=== PATIENT | male | born 1960 | race Caucasian/White ===

== ENCOUNTER 2017-12-23 06:55 | Day surgery (SDC) | payer OTHER ==
[~2017-12-23] VITALS: Ht 236.2 cm; Wt 94.0 kg
[2017-12-23] MEDS ORDERED: IOHEXOL 350 MG/ML 50 ML BTL (for Cath Lab) OTHER ONE (06:56)
[2017-12-23 07:30] VITALS: BP 174/98; PULSE 58; RESP 17; TEMP 98.1; O2SAT 97
[2017-12-23] MEDS ORDERED: NS 1000P @30 MLS/HR (KVO) IV SCH (07:30)
[2017-12-23] MEDS ORDERED: ROSU1TAB10 PO (07:32)
[2017-12-23] MEDS ORDERED: NOVOLOGP2 SQ (07:32)
[2017-12-23] MEDS ORDERED: METF500T PO (07:32)
[2017-12-23] MEDS ORDERED: LEVEMIR SQ (07:32)
[2017-12-23] MEDS ORDERED: ASPI-183 PO (07:32)
[2017-12-23] MEDS ORDERED: METO50TA PO (07:32)
[2017-12-23] MEDS ORDERED: MIDAZOLAM HCL 2 MG/2 ML VIAL ONE (08:27)
[2017-12-23] MEDS ORDERED: HEPARIN-NS/PF INJ 1,500 ML ONE (08:27)
[2017-12-23] MEDS ORDERED: HEPARIN SODIUM - IV 10,000 UNITS/10 ML VIAL ONE (08:28)
[2017-12-23] MEDS ORDERED: NITROGLYCERIN INJ 5 ML ONE (08:28)
--- NOTE | 2017-12-23 09:11 | CATHPROC ---
[employer] HIS Report Study Information Study Number Scheduled Start Study Start [id number] 12/23/2017 Dec 23 2017 8:26AM Referring Institution Admit Source Facility Department 1 Other [facility] - Research Nutritionist Physician and Clinical Staff Initial Kenny Gil Sample Book Makerenoc Carrizales RN, Javier Recorder Deborah Romero ,RT(R) Caitlin Jauregui,RT(R) Procedures Performed Procedure Location (Site) Vessel Name Coronary Angiograms LCA Left Coronary Coronary Angiograms RCA Right Coronary L Heart Cath Wire insertion Radial (right) Radial Art. Equipment Time Commission Broker Description Size Mfg Part Number Used/Scraped TRANSDUCER, TRUWAVE [id number] 08:29 FALCON BRUNO * Used W/STOCKCOCK *[id number] *[id number] 08:29 OneSpot PACK, CCL CUSTOM * Used *[id number] 08:29 [employer]Spot SUPPORT, ARTERIAL ADULT [id number] *[id number] Used [id number] 08:29 [employer] PACER PEN, SKIN DUAL W/ RULER * Used *[id number] 08:36 MEDTRONIC JR 5.0 DXTERITY CATHETER fr 5 [id number] Used BAND, RADIAL COMPRESSION TR [id number] 08:58 [employer] MEDICAL 29CM Used LARGE 29 *[id number] SHEATH, FR6 RADIAL PRELUDE 08:29 ESTmob FR 6 [id number] Used EASE 11CM [id number] 08:29 [employer] MEDICAL WIRE, EXCHANGE 260CM 3MMJ 260CM Used *[id number] 08:29 NAMIC MANIFOLD, 4 PORT * Used *[id number] 08:29 NYCOMED OMNIPAQUE, 350 MG, 150ML 150ML [id number] Used [id number] 08:29 SOFIA MEDICAL BLANKET,WARM AIR CCL * Used *[id number] Equipment Model, Serial, Lot Number and Expiration Data Description Model Number Serial Number Lot Number Expiration Date JR 5.0 DXTERITY CATHETER [id number] 02-04-2020 History: Current Medications Medication Dosage/Unit Route Frequency Last Date/Time Taken ASA Insulin Statins (any) History: Allergies Allergy Reaction No Known Allergies History: Risk Factors Family History of Hypertension Dyslipidemia Previous NC Previous Heart Failure Premature CAD Yes No No No No Prior Valve Prior PCI Prior PCIDate Prior CABG Surgery No Yes 08/01/2011 No Cerebrovascular Peripheral Artery Chronic Lung On Dialysis Diabetes Diabetes Therapy Disease Disease Disease No No No No Yes Insulin History: Stress Tests Stress or Imaging Studies Performed Yes History: Other Current Smoker Method Yes Cigarettes Labs Hgb (g/dl) Hct (%) WBC (l/cumm) Platelets (thousands) 11.60-17.00 35.00-51.00 4.00-11.00 150.00-450.00 13.0 39.3 5.8 159 Glucose (mg/dl) BUN (mg/dl) Creatinine (mg/dl) BUN:Creatinine (1:x) 74.00-106.00 7.00-18.00 0.50-1.30 10.00-20.00 134 24 0.7 34.3 Na (meq/l) K (meq/l) 136.00-145.00 3.50-5.10 145 4.5 INR (PTT:PT) 0.90-1.10 0.9 CPK-MB (ng/ML) 0.50-3.60 Not Drawn Medication Medication Total Dose (Bolus/Oral) Medication Total Dosage/Unit 1% XYLOCAINE 5 mL FENTANYL 50 mcg HEPARIN 5000 units NTG (IC) 200 mcg VERSED 1 mg Medications (Bolus/Oral) Medication Time Given Dosage/Unit Administered By Reason VERSED 12/23/2017 8:42:45 AM 1 mg Javier Carrizales RN 1 mg VERSED given in lab by Javier Carrizales RN in Left Antecubital via Peripheral IV. Ordered by Kenny Urbano. FENTANYL 12/23/2017 8:43:16 AM 50 mcg Javier Carrizales RN 50 mcg FENTANYL given in lab by Javier Carrizales RN in Left Antecubital via Peripheral IV. Ordered by Kenny Vo. 1% XYLOCAINE 12/23/2017 8:48:50 AM 5 mL Kenny Urbano 5 mL 1% XYLOCAINE given in lab by Kenny Urbano in Right Radial via Subcutaneous. Ordered by Kenny Urbano. NTG (IC) 12/23/2017 8:50:24 AM 200 mcg Kenny Urbano 200 mcg NTG (IC) given in lab by Kenny Urbano in Right Radial via Intra-coronary. Ordered by Kenny Urbano. HEPARIN 12/23/2017 8:50:39 AM 5000 units Javier Carrizales RN 5000 units HEPARIN given in lab by Javier Carrizales RN via Peripheral IV. Ordered by Kenny Urbano. Medication (Drip) Medication Time Given Dosage/Unit Concentration/Unit Diluent (ml) Solution IV Solutions 12/23/2017 8:27:20 AM 50 mL (IV) NaCl .9 Patient arrived on IV Solutions in Left Antecubital via Peripheral IV. Pump/Drip Flow using NaCl .9. Initial Case Assessment Cardiovascular HR Rhythm NIBP Chest Pain 59 sr 179/92 0 Edema Present Skin color Skin None Normal Warm Dry Circulatory - Right Pulses Dorsalis Pedis Femoral Radial 2 2 2 Scale (0,1,2,3,4,d) Circulatory - Left Pulses Dorsalis Pedis Femoral Radial 2 2 Scale (0,1,2,3,4,d) Circulatory - Lower Extremities Color Lower Right Color Lower Left Normal Normal Neurological State Oriented to time-place- Alert Moves all extremities person Respiration - General Respiration Rate SpO2 (%) (B/min) 16 97 Final Case Assessment Cardiovascular HR Rhythm NIBP Chest Pain 59 sr 179/92 0 Edema Present Skin color Skin None Normal Warm Dry Circulatory - Right Pulses Dorsalis Pedis Femoral Radial 2 2 2 Scale (0,1,2,3,4,d) Circulatory - Left Pulses Dorsalis Pedis Femoral Radial 2 2 Scale (0,1,2,3,4,d) Circulatory - Lower Extremities Color Lower Right Color Lower Left Normal Normal Neurological State Oriented to time-place- Alert Moves all extremities person Respiration - General Respiration Rate SpO2 (%) (B/min) 16 97 Chronological Log Time Study Chronological Log 8:20:02 Patient Name, D.O.B, / Armband Verified By R.N. 8:20:58 Patient arrived via Bed. 8:21:06 Consent signed by the physician and the patient and verified by the Research Nutritionist staff. 8:21:11 Pre-op and post- op instructions given; patient acknowledges understanding of instructions. 8:21:14 Verbal Stimulation=2 Physical Stimulation=2 Airway=2 Respiration=2 TOTAL=8. (0=absent, 1=li mited, 2=present) 8:21:18 Patient has been NPO for More than 6Hrs. 8:21:22 Patient Warmer Placed on the Table. 8:21:25 Kaylah Prominences Protected 8:22:34 History and physical on the chart or being dictated. 8:26:29 A # 20 IV was noted in the Antecubital (left). Grade = 0 Vitals capture started with the following parameters, Patient=Adult, Interval=5 min, Initial Pr lxatcw=256 mmHg, 8:26:47 Deflation Rate=5 mmHg, Cuff placed on Left Arm 8:27:20 Patient arrived on IV Solutions in Left Antecubital via Peripheral IV. Pump/Drip Flow using NaCl .9. 8:27:59 HR=60 bpm, WENR=535/92 mmhg, SpO2=97.0 %, Resp=18 B/min, Pain=0, Cristhian=10, Zaldivar=2 Assessment: Initial Case, HR=59 BPM, Rhythm=sr, MMHO=803/92 mmhg, Chest Pain=0, Edema=None, [place] r=Normal, Skin = Warm, Dry Right Pulses: Yoshi Ped=2, Femoral=2, Radial=2 Left Pulses: Yoshi Ped=2, Femoral=2 8:31:15 Lower Right Extremities: Color=Normal Lower Left Extremities: Color=Normal Neurological: State=Alert, Ox3, COOLEY Respiration: Resp=16 B/min, SpO2=97 % 8:31:18 Right Radial and groin(s) prepped with 2% chlorhexidine, and draped after a 3 min. waiting t eneida. 8:32:35 HR=59 bpm, WMGV=463/94 mmhg, SpO2=97.0 %, Resp=17 B/min, Pain=0, Cristhian=10, Zaldivar=2 8:33:18 paged 8:35:03 MD responded 8:35:15 Pressure channel 1 zeroed. 8:37:38 HR=59 bpm, COBH=291/98 mmhg, SpO2=96.0 %, Resp=14 B/min, Pain=0, Cristhian=10, Zaldivar=2 8:42:22 Reference ECG taken 8:42:33 HR=59 bpm, HTHN=352/96 mmhg, SpO2=96.0 %, Resp=20 B/min, Pain=0, Cristhian=10, Zaldivar=2 8:42:45 1 mg VERSED given in lab by Javier Carrizales RN in Left Antecubital via Peripheral IV. Ordered Kenny Garcia. 8:43:16 50 mcg FENTANYL given in lab by Javier Carrizales RN in Left Antecubital via Peripheral IV. Order ed by Kenny Urbano. 8:43:41 MD arrived. Time Out. Correct patient, correct procedure, correct physician, labs, allergies, and equipment verified with high density press laborer 8:44:14 team present. Fire risk assesment completed (see hard stop sheet for coding). Time Out Concu rred by MD and individual staff in procedure. 8:47:32 HR=59 bpm, TEHA=220/95 mmhg, SpO2=97.0 %, Resp=13 B/min 8:48:15 Case Start 8:48:50 5 mL 1% XYLOCAINE given in lab by Kenny Urbano in Right Radial via Subcutaneous. Ordered b Kenny Trevino. 8:49:19 Access site was Right Radial Artery. 8:49:56 A wire was inserted via Radial (right). A SHEATH, FR6 RADIAL PRELUDE EASE 11CM FR 6 was advanced into the Radial (right) using the Ady bains 8:50:07 technique. 8:50:24 200 mcg NTG (IC) given in lab by Kenny Urbano in Right Radial via Intra-coronary. Ordered by Kenny Urbano. 8:50:39 5000 units HEPARIN given in lab by Javier Carrizales RN via Peripheral IV. Ordered by Fernando Urbano. A JR 5.0 DXTERITY CATHETER fr 5 was advanced over a wire. OMNIPAQUE, 350 MG, 150ML 150ML was use d for 8:51:30 injections. Recorded Pressure: Ao, HR=60, Condition=Condition 1 8:52:04 (Aorta) Ao 151/81/109 8:52:18 The RCA was injected and visualized at various angles. OMNIPAQUE, 350 MG, 150ML 150ML used. 8:52:33 HR=62 bpm, IZWC=033/93 mmhg, SpO2=94.0 %, Resp=13 B/min, Pain=0, Cristhian=10, Zaldivar=2 After removing the current catheter a JL 3.5 INFINITI CATHETER FR 5 was advanced over a WIRE, EX CHANGE 260CM 8:53:43 3MMJ 260CM. 8:56:16 The LCA was injected and visualized at various angles. OMNIPAQUE, 350 MG, 150ML 150ML used. 8:57:15 Catheter was removed 8:57:26 Case End 8:57:32 HR=59 bpm, EYAQ=631/86 mmhg, SpO2=95.0 %, Resp=15 B/min, Pain=0, Cristhian=10, Zaldivar=2 Assessment: Final Case, HR=59 BPM, Rhythm=sr, LQYU=579/92 mmhg, Chest Pain=0, Edema=None, [place] r=Normal, Skin = Warm, Dry Right Pulses: Yoshi Ped=2, Femoral=2, Radial=2 Left Pulses: Yoshi Ped=2, Femoral=2 8:59:13 Lower Right Extremities: Color=Normal Lower Left Extremities: Color=Normal Neurological: State=Alert, Ox3, COO[place] Respiration: Resp=16 B/min, SpO2=97 % 8:59:21 Catheter(s) removed without difficulty Radial Compression Device Used. 18 mLs of air placed in BAND, RADIAL COMPRESSION TR LARGE 29 2 9CM. Affected 8:59:24 hand ~O2 SATURATION~ % O2 saturation. 8:59:27 No case complications noted. 8:59:27 Cine recording checked. 8:59:28 Bedside Report will be given. 8:59:34 A Left Heart Cath was performed. 9:02:33 HR=68 bpm, SQWX=214/93 mmhg, SpO2=97.0 %, Resp=13 B/min, Pain=0, Cristhian=10, Zaldivar=2 9:07:02 [facility] End Study - Contrast Media Used In Study Contrast Total Opened (mL) Total Used (mL) Total Wasted (mL) Omnipaque 30 30 0 End Study - Maximum Contrast Load Max Contrast Load (mL) 671.4 End Study - Radiation Exposure Fluoro Time (minutes) 1.6 End Study - Sheaths Sheaths Pulled By Sheath Hold Time (min) Caitlin Mixon End Study - Patient Disposition Complications Transferred To Interventional Outcome No Telemetry Bed No attempt made
[2017-12-23] MEDS ORDERED: BACITRACIN OINT 0.9 GM PKT TOP ONE (09:15)
[2017-12-23] MEDS ORDERED: MISC INFORMATION XX ONE (09:15)
--- NOTE | 2017-12-23 09:36 | MA ---
cc: Kenny Urbano MD DATE: 12/23/2017 INDICATION: Abnormal stress test, intermediate risk. PROCEDURES PERFORMED: 1. Fluoroscopy with interpretation. 2. Coronary angiography. METHOD: Risks, benefits and alternatives discussed with the patient. The patient understood and consented to the procedure. The patient brought into the catheterization lab, placed on the catheterization table. The right wrist was prepped and draped in a sterile fashion. The right wrist was anesthetized with 2% lidocaine. The right radial artery was cannulated and a 6-[place] 7 cm sheath was placed without difficulty. CORONARY ANGIOGRAPHY: 1. Left main coronary artery is angiographically normal. 2. Left anterior descending coronary artery has some minor luminal irregularities in the proximal segment, 30% stenosis in the mid segment. The remainder of the vessel is widely patent. 3. Left circumflex gives rise to a very small first obtuse marginal branch. The second obtuse marginal branch is larger caliber size. The circumflex itself has mild to moderate disease, but no high-grade obstruction. 4. Right coronary artery is a dominant vessel giving rise to a posterior descending branch. The right coronary artery has occluded in the midsegment, but collateralized well from left to right. There is a stent that is present in the distal right, which is occluded. 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 PLAN: The territory of ischemia fits the distribution of the right coronary artery. Symptomatically, the patient is doing well. May consider Isosorbide if becomes symptomatic or titration of beta blockade if there is further arrhythmia. At this point, given the collateralization to the distal right coronary artery, there is no indication for attempted percutaneous intervention of the chronic occlusion. We will plan for discharge later today and followup with Dr. Tate. Kenny Urbano MD AGUSTO/DL , 09:08 AM , 09:34 AM
== END 2017-12-23 14:40 | disposition home or self-care (01) ==
LOC: HDIC 06:55 → HDOC 06:55
PROVIDERS: ATTEND Internal Medicine
DX: I25.10 Atherosclerotic heart disease of native coronary artery without angina pectoris (principal)
CPT/HCPCS: 93454; 99152; C1769; C1893; J1644; J2250; J3010; Q9967